=== PATIENT | male | born 1950 | race Caucasian/White ===

== ENCOUNTER → 2021-01-11 13:38 | Outpatient (BNVA) | payer OTHER, SELFPAY | PROVIDERS: PCP Family Medicine Geriatric Medicine; Referring Provider Family Medicine Geriatric Medicine; Visit Provider Nurse Practitioner | DX: R25.1 Tremor, unspecified (principal); R26.89 Other abnormalities of gait and mobility | CPT/HCPCS: 99204 ==

== ENCOUNTER → 2021-05-21 12:27 | Outpatient (BNVA) | payer OTHER, SELFPAY | PROVIDERS: PCP Family Medicine Geriatric Medicine; Visit Provider Nurse Practitioner | DX: R25.1 Tremor, unspecified (principal); R29.6 Repeated falls; Z87.891 Personal history of nicotine dependence | CPT/HCPCS: 99213; 99214 ==